=== PATIENT | male | born 1940 | race Caucasian/White ===

== ENCOUNTER 2017-06-12 09:20 | Inpatient (IN) | payer OTHER, MEDICARE, MEDICAID ==
[2017-06-12 10:24] LABS: CHLORIDE,CL 88 mmol/L (101-111); SODIUM,NA 123 mmol/L (135-145)
--- NOTE | 2017-06-12 10:35 | CR ---
Clinical history: 76-year-old male chest pain. Interpretation: Evidence of apparent cardiovascular decompensation i.e. pulmonary venous congestion and blunting the right costophrenic sulcus since PA film of 10 September 2014 (underlying right lower lobe pneumonia with small ipsilateral pleural effusion differential consideration and close clinical correlation requeste d). Old healed fracture deformities posterior lateral right fifth rib. Lingular scarring. No sign of lung mass, other focal lobar infiltrate or atelectasis. No pneumothorax . CONCLUSION: Mild CHF (see above). BNP? EKG?
[2017-06-12] MEDS ORDERED: Furosemide 40 MG/4 ML VIAL IVPUSH ONE (11:05)
--- NOTE | 2017-06-12 11:45 | EDM.PDOC ---
ED HPI GENERAL MEDICAL PROBLEM - General Chief Complaint: Respiratory Problem Stated Complaint[facility] Time Seen by Provider: 06/12/17 09:42 Source of Information: Reports: Patient, RN, RN Notes Reviewed, Other ([facility]) History Limitations: Reports: No Limitations, Other (Poor historian) - History of Present Illness INITIAL COMMENTS - FREE TEXT/NARRATIVE: Pt presents to the ER with c/o increased sob and leg swelling. He states he was to the [place] clinic 2 days ago with the same complaints. Lab was done and he was called yesterday with results and suggestion to go to the ER. Patient states the sob has been going on for about a week or longer. He states he is "bleeding inside his prostate". Patient admits to SOB, denies chest pain, abdominal pain, fever or chills, N/V/D. Onset: Gradual Duration: Getting Worse Severity: Moderate Improves with: Reports: Rest Worsens with: Reports: Movement Context: Reports: Activity - Related Data Allergies Allergy/AdvReac Type Severity Reaction Status Date / Time cornflower Allergy Rash Verified 05/17/16 12:06 Penicillins Allergy Anaphylactic Verified 05/17/16 12:06 Shock strawberry Allergy Rash Verified 05/17/16 12:06 Home Meds: Home Meds Aspirin [Halfprin] 81 mg PO BRK 05/17/16 [History] Hydrocodone/Acetaminophen [Hydrocodon-Acetaminophen 5-325] 1 each PO Q12HR PRN 05/17/16 [History] Terazosin HCl [Terazosin] 10 mg PO BEDTIME 05/17/16 [History] Albuterol [IJD: Albuterol HFA] 2 puff INH ASDIRECTED PRN 06/12/17 [History] Chlorthalidone 2 tab PO DAILY 06/12/17 [History] Past Medical History HEENT History: Reports: Impaired Vision, Other (See Below) Other HEENT History: wears glasses. Cardiovascular History: Reports: CAD, Heart Murmur, High Cholesterol, Hypertension Respiratory History: Reports: COPD Gastrointestinal History: Reports: None Genitourinary History: Reports: Prostate Disorder Musculoskeletal History: Reports: Fracture Neurological History: Reports: None Psychiatric History: Reports: None Endocrine/Metabolic History: Reports: None Hematologic History: Reports: Other (See Below) Other Hematologic History: told he has low blood Immunologic History: Reports: None Oncologic (Cancer) History: Reports: Colon Dermatologic History: Reports: None - Past Surgical History HEENT Surgical History: Reports: Other (See Below) Other HEENT Surgeries/Procedures: tear duct surgery [facility] GI Surgical History: Reports: Other (See Below) Other GI Surgeries/Procedures: Colon surgery for CA Musculoskeletal Surgical History: Reports: Other (See Below) Other Musculoskeletal Surgeries/Procedures:: bilat index tip of finger amputated. Social & Family History - Family History Family Medical History: Noncontributory - Tobacco Use Smoking Status *Q: Former Smoker Years of Tobacco use: 0 Used Tobacco, but Quit: Yes Month Tobacco Last Used: 5 - Caffeine Use Caffeine Use: Reports: Coffee - Recreational Drug Use Recreational Drug Use: No - Living Situation & Occupation Living situation: Reports: Alone Occupation: Retired ED ROS GENERAL - Review of Systems Review Of Systems: ROS reveals no pertinent complaints other than HPI. ED EXAM, GENERAL - Physical Exam Exam: See Below Exam Limited By: No Limitations General Appearance: Alert, WD/WN, Mild Distress Eye Exam: Bilateral Eye: EOMI, Normal Inspection, PERRL Ears: Normal External Exam, Hearing Grossly Normal Nose: Normal Inspection Throat/Mouth: Normal Inspection, Normal Voice, No Airway Compromise Head: Atraumatic, Normocephalic Neck: Normal Inspection, Supple, Non-Tender, Full Range of Motion Respiratory/Chest: Chest Non-Tender, Respiratory Distress (mild distress), Decreased Breath Sounds, Crackles (bases bilaterally) Cardiovascular: Normal Peripheral Pulses, Systolic Murmur, Irregularly Irregular. No: No Edema (bilateral lower leg edema +2-3) Peripheral Pulses: 1+: Radial (L), Radial (R), Dorsalis Pedis (L), Dorsalis Pedis (R) GI/Abdominal: Normal Bowel Sounds, Soft, Non-Tender, Distended (Male) Exam: Deferred Rectal (Males) Exam: Normal Exam, Normal Rectal Tone, Heme - Stool Back Exam: Normal Inspection, Full Range of Motion Extremities: Normal Inspection, Non-Tender, Normal Capillary Refill, Pedal Edema , Limited Range of Motion Neurological: Alert, Oriented, CN II-XII Intact, Normal Cognition, No Motor/ Sensory Deficits Psychiatric: Normal Affect, Normal Mood Skin Exam: Warm, Dry, Intact, Normal Color, No Rash Lymphatic: No Adenopathy EKG INTERPRETATION EKG Date: 06/12/17 Time: 10:05 Rhythm: A-Fib Rate (Beats/Min): 92 Comparison: NA - No Prior EKG EKG Interpretation Comments: Multiple PVC's Course - Vital Signs Last Recorded V/S: Last Vital Signs Temp 98.4 F 06/12/17 09:22 Pulse 99 06/12/17 09:22 Resp 24 H 06/12/17 09:22 BP 149/64 H 06/12/17 09:22 Pulse Ox 95 06/12/17 09:22 - Orders/Labs/Meds Orders: Active Orders 24 hr Category Date Time Status EKG Documentation Completion [RC] STAT Care 06/12/17 09:41 Active Labs: Laboratory Tests 06/12/17 06/12/17 06/12/17 Range/Units 09:53 09:53 10:40 WBC 5.1 (5.0-10.0) 10^3/uL RBC 3.20 L (4.6-6.2) 10^6/uL Hgb 10.1 L (14.0-18.0) g/dL Hct 30.3 L (40.0-54.0) % MCV 94.7 (80-100) fL MCH 31.6 (27.0-34.0) pg MCHC 33.3 (33.0-35.0) g/dL Plt Count 196 (150-450) 10^3/uL Neut % (Auto) 70.9 (42.2-75.2) % Lymph % (Auto) 14.5 L (20.5-50.1) % [place] % (Auto) 11.6 H (2-8) % Eos % (Auto) 2.8 (1.0-3.0) % Baso % (Auto) 0.2 (0.0-1.0) % Sodium 123 L (135-145) mmol/L Potassium 3.7 (3.6-5.0) mmol/L Chloride 88 L (101-111) mmol/L Carbon Dioxide 24.0 (21.0-31.0) mmol/L Anion Gap 14.7 BUN 10 (7-18) mg/dL Creatinine 1.0 (0.6-1.3) mg/dL Est Cr Clr Drug Dosing 68.80 mL/min Estimated GFR (MDRD) > 60 BUN/Creatinine Ratio 10.00 Glucose 95 (74-105) mg/dL Calcium 8.2 L (8.4-10.2) mg/dl Total Bilirubin 0.3 (0.2-1.0) mg/dL AST 27 (10-42) IU/L ALT 16 (10-60) IU/L Alkaline Phosphatase 54 (42-121) IU/L Troponin I 0.02 (0.00-0.02) ng/ml B-Natriuretic Peptide 593 H (0-100) pg/ml Total Protein 6.5 L (6.7-8.2) g/dl Albumin 3.2 (3.2-5.5) g/dl Globulin 3.3 Albumin/Globulin Ratio 0.97 Urine Color Yellow (YELLOW) Urine Appearance Clear (CLEAR) Urine pH 5.5 (5.0-9.0) Ur Specific [place] 1.010 (1.005-1.030) Urine Protein Negative (NEGATIVE) Urine Glucose (UA) Negative (NEGATIVE) Urine Ketones Negative (NEGATIVE) Urine Occult Blood Negative (NEGATIVE) Urine Nitrite Negative (NEGATIVE) Urine Bilirubin Negative (NEGATIVE) Urine Urobilinogen 0.2 (0.2-1.0) mg/dL Ur Leukocyte Esterase Negative (NEGATIVE) Urine RBC 0-5 /HPF Urine WBC 0-5 (0-5/HPF) /HPF Ur Epithelial Cells Rare /HPF Urine Bacteria Rare (0-FEW/HPF) /HPF Meds: Medications Discontinued Medications Generic Name Dose Route Start Last Admin Trade Name Freq PRN Reason Stop Dose Admin Furosemide 80 mg 06/12/17 11:05 06/12/17 11:21 Lasix IVPUSH 06/12/17 11:06 80 mg NOW ONE Administration - Radiology Interpretation Free Text/Narrative:: Portable Chest xray: Mild CHF See rad report Departure - Departure Time of Disposition: 12:07 Disposition: Admitted As Inpatient 64 Condition: Fair Clinical Impression: Hyponatremia, Hypochloremia Congestive heart failure Qualifiers: Congestive heart failure type: unspecified congestive heart failure type Congestive heart failure chronicity: acute Qualified Code(s): I50.9 - Heart failure, unspecified - Discharge Information - My Orders Last 24 Hours: My Active Orders 06/12/17 09:41 EKG Documentation Completion [RC] STAT - Assessment/Plan Last 24 Hours: My Active Orders 06/12/17 09:41 EKG Documentation Completion [RC] STAT
[2017-06-12] MEDS ORDERED: Albuterol 6.7 GM Inhaler INH PRN ×2 (14:36→15:00)
--- NOTE | 2017-06-12 14:38 | PCM.HP ---
H&P History of Present Illness - General Date of Service: 06/12/17 Admit Problem/Dx: Admission Diagnosis/Problem Admission Diagnosis/Problem Shortness of breath History Limitations: Reports: No Limitations - History of Present Illness Initial Comments - Free Text/Narative: Patient is a 76 y/o male with multiple PMH including COPD, CHF who presented to the ED with worsening SOB x 1 week. He reports he is been having SOB for the week and has gotten progressively worse. He notes dry cough, no fever or chills. No flu symptoms. He has 2 pillow orthopnea and this has not change. No PND. He also notes b/l leg swelling. No calf tenderness or recent travel. He said he was seen in the [place] clinic 2 days ago with similar complaints. He denies chest pain, abdominal pain, N/V/D. Improves with: Reports: None Worsens with: Reports: None Associated Symptoms: Reports: Cough - Related Data Allergies/Adverse Reactions: Allergies Allergy/AdvReac Type Severity Reaction Status Date / Time cornflower Allergy Rash Verified 06/12/17 12:07 Penicillins Allergy Anaphylactic Verified 06/12/17 12:07 Shock strawberry Allergy Rash Verified 06/12/17 12:07 Home Medications: Home Meds Aspirin [Halfprin] 81 mg PO BRK 05/17/16 [History] Hydrocodone/Acetaminophen [Hydrocodon-Acetaminophen 5-325] 1 each PO Q12HR PRN 05/17/16 [History] Terazosin HCl [Terazosin] 10 mg PO BEDTIME 05/17/16 [History] Albuterol [IJD: Albuterol HFA] 2 puff INH ASDIRECTED PRN 06/12/17 [History] Chlorthalidone 2 tab PO DAILY 06/12/17 [History] Past Medical History HEENT History: Reports: Impaired Vision, Other (See Below) Other HEENT History: wears glasses. Cardiovascular History: Reports: CAD, Heart Murmur, High Cholesterol, Hypertension Respiratory History: Reports: COPD Gastrointestinal History: Reports: None Genitourinary History: Reports: Prostate Disorder Musculoskeletal History: Reports: Fracture Neurological History: Reports: None Psychiatric History: Reports: None Endocrine/Metabolic History: Reports: None Hematologic History: Reports: Other (See Below) Other Hematologic History: told he has low blood Immunologic History: Reports: None Oncologic (Cancer) History: Reports: Colon Dermatologic History: Reports: None - Infectious Disease History Infectious Disease History: Reports: Chicken Pox, Measles, Rubella - Past Surgical History HEENT Surgical History: Reports: Other (See Below) Other HEENT Surgeries/Procedures: tear duct surgery [facility] GI Surgical History: Reports: Other (See Below) Other GI Surgeries/Procedures: Colon surgery for CA Musculoskeletal Surgical History: Reports: Other (See Below) Other Musculoskeletal Surgeries/Procedures:: bilat index tip of finger amputated. Social & Family History - Family History Family Medical History: Noncontributory - Tobacco Use Smoking Status *Q: Former Smoker Years of Tobacco use: 0 Packs/Tins Daily: 5 Used Tobacco, but Quit: Yes Month Tobacco Last Used: 5 Second Hand Smoke Exposure: No - Caffeine Use Caffeine Use: Reports: Coffee - Alcohol Use Days Per Week of Alcohol Use: 1 Number of Drinks Per Day: 1 Total Drinks Per Week: 1 Date of Last Drink: 06/10/17 - Recreational Drug Use Recreational Drug Use: No - Living Situation & Occupation Living situation: Reports: Alone Occupation: Retired H&P Review of Systems - Review of Systems: Review Of Systems: See Below General: Reports: No Symptoms HEENT: Reports: No Symptoms Pulmonary: Reports: Shortness of Breath, Cough Cardiovascular: Reports: No Symptoms Gastrointestinal: Reports: No Symptoms Genitourinary: Reports: No Symptoms Musculoskeletal: Reports: No Symptoms Skin: Reports: No Symptoms Psychiatric: Reports: No Symptoms Neurological: Reports: No Symptoms Hematologic/Lymphatic: Reports: No Symptoms Immunologic: Reports: No Symptoms Exam - Exam Exam: See Below - Vital Signs Vital Signs: Last Vital Signs Temp 98.4 F 06/12/17 09:22 Pulse 99 06/12/17 09:22 Resp 24 H 06/12/17 09:22 BP 149/64 H 06/12/17 09:22 Pulse Ox 95 06/12/17 09:22 Weight: 276 lb 9.6 oz - Exam Quality Assessment: Supplemental Oxygen General: Alert, Oriented, Cooperative HEENT: PERRLA, Hearing Intact, Mucosa Moist & Capac, Nares Patent, Normal Nasal Septum, Posterior Pharynx Clear, Conjunctiva Clear, EOMI, EACs Clear, TMs Clear Neck: Supple, Trachea Midline, 2 Lungs: Normal Respiratory Effort, Rales, Wheezing Cardiovascular: Regular Rate, Regular Rhythm GI/Abdominal Exam: Normal Bowel Sounds, Soft, Non-Tender, No Organomegaly, No Distention, No Abnormal Bruit, No Mass, Pelvis Stable (Male) Exam: No Hernia, Normal Inspection, Normal Prostate, Circumcised Rectal (Males) Exam: Normal Exam, Normal Rectal Tone, Prostate Normal Back Exam: Normal Inspection, Full Range of Motion, NT Extremities: Pedal Edema Skin: Warm, Dry, Intact Neurological: Cranial Nerves Intact, Reflexes Equal Bilateral Neuro Extensive - Mental Status: Alert, Oriented x3, Normal Mood/Affect, Normal Cognition Neuro Extensive - Motor, Sensory, Reflexes: CN II-XII Intact, Normal Gait, Normal Reflexes Psychiatric: Alert, Normal Affect, Normal Mood - Patient Data Result Diagrams: 06/12/17 09:53 06/12/17 09:53 *Q Meaningful Use (ADM) - VTE *Q VTE Criteria *Q: - Stroke *Q Stroke Criteria *Q: - AMI *Q AMI Criteria *Q: - Problem List (1) Congestive heart failure SNOMED Code(s): 94365489 ICD Code: I50.9 - HEART FAILURE, UNSPECIFIED Status: Acute Priority: High Current Visit: Yes Qualifiers: Congestive heart failure type: unspecified congestive heart failure type Congestive heart failure chronicity: acute Qualified Code(s): I50.9 - Heart failure, unspecified (2) Hypochloremia SNOMED Code(s): 18415831 ICD Code: E87.8 - OTH DISORDERS OF ELECTROLYTE AND FLUID BALANCE, NEC Status: Acute Current Visit: Yes (3) Hyponatremia SNOMED Code(s): 30763410 ICD Code: E87.1 - HYPO-OSMOLALITY AND HYPONATREMIA Status: Acute Current Visit: Yes Problem List Initiated/Reviewed/Updated: Yes Orders Last 24hrs: Active Orders 24 hr Category Date Time Status Patient Status [ADT] Routine ADT 06/12/17 14:31 Ordered Blood Glucose Check, Bedside [] TIDMEALS Care 06/12/17 14:31 Ordered Cardiac Monitoring [] CONTINUOUS Care 06/12/17 14:33 Ordered Height and Weight [] DAILY Care 06/12/17 14:31 Ordered Intake and Output [RC] QSHIFT Care 06/12/17 14:34 Ordered Oxygen Therapy [RC] PRN Care 06/12/17 14:31 Ordered Pulse Oximetry [] CONTINUOUS Care 06/12/17 14:33 Ordered RT Aerosol Therapy [RC] ASDIRECTED Care 06/12/17 14:36 Ordered VTE/DVT Education [RC] PER UNIT ROUTINE Care 06/12/17 14:31 Ordered Vital Signs [RC] Q4H Care 06/12/17 14:31 Ordered Cardiac [Heart Healthy Diet] [DIET] Diet 06/12/17 Dinner Active MAGNESIUM [CHEM] Stat Lab 06/12/17 14:31 Ordered PHOSPHORUS [CHEM] Stat Lab 06/12/17 14:31 Ordered Acetaminophen/HYDROcodone [[place] 325-5 MG] Med 06/12/17 14:36 Ordered 1 each PO Q12HR PRN Albuterol [Proventil HFA] Med 06/12/17 14:36 Ordered 2 puff INH ASDIRECTED PRN Albuterol/Ipratropium [DuoNeb 3.0-0.5 MG/3 ML] Med 06/12/17 14:31 Ordered 3 ml NEB Q4H PRN Aspirin [Halfprin] Med 06/13/17 08:00 Ordered 81 mg PO BRK Chlorthalidone Med 06/13/17 09:00 Ordered 2 tab PO DAILY Heparin Sodium Med 06/12/17 14:45 Ordered 5,000 units SUBCUT Q12H Terazosin HCl [Terazosin] Med 06/12/17 21:00 Ordered 10 mg PO BEDTIME Resuscitation Status Routine Resus Stat 06/12/17 14:31 Ordered Medication Orders Hydrocodone Bitart/Acetaminophen ([place] 325-5 Mg) tab PO Q12HR PRN PRN Reason: Pain Albuterol (Proventil Hfa) gm INH ASDIRECTED PRN PRN Reason: breathing Albuterol/Ipratropium (Duoneb 3.0-0.5 Mg/3 Ml) 3 ml NEB Q4H PRN PRN Reason: shortness of breath/wheezing Aspirin (Halfprin) 81 mg PO BRK [place] Chlorthalidone (Chlorthalidone) mg PO DAILY [place] Heparin Sodium (Porcine) (Heparin Sodium) 5,000 units SUBCUT Q12H [place] Non-Formulary Medication (Terazosin Hcl [Terazosin]) 10 mg PO BEDTIME [facility] Assessment/Plan Comment:: # Acute hypoxic respiratory failure -This likely due to mild CHF decompensation vs COPD exacerbation vs Pneumonia -will admit patient at this time -Duo-Nebs q4h prn -IV solumedrol 40 mg q8h -Oxygen prn -pulse ox -Levaquin IV -IV lasix 40 mg bid -Daily weight -Fluid restriction -Echo if available -Lisinopril -Carvedilol
[2017-06-12] MEDS: Albuterol/Ipratropium 3.0-0.5 MG/3 ML Neb Soln NEB PRN (15:25)
[2017-06-12] MEDS: Levofloxacin/Dextrose 5%-Water 750 MG in Premix Bag 1 BAG IV SCH (16:31)
[2017-06-12] MEDS: Acetaminophen/HYDROcodone 325-5 MG Tab PO PRN (16:37)
[2017-06-12] MEDS: Terazosin 5 MG Cap PO SCH (20:14)
[2017-06-12] MEDS: Heparin Sodium 5,000 Units/ML Vial SUBCUT SCH (20:17)
[2017-06-12] MEDS: Furosemide 40 MG/4 ML VIAL IVPUSH SCH (20:18)
[2017-06-12] MEDS ORDERED: Sodium Chloride 0.9% 10 ML Syringe FLUSH PRN (20:30)
[2017-06-12] MEDS ORDERED: Furosemide 40 MG/4 ML VIAL IVPUSH SCH (21:00)
[2017-06-13] MEDS: Acetaminophen/HYDROcodone 325-5 MG Tab PO PRN ×2 (06:13→18:04)
[2017-06-13] MEDS: Lisinopril 10 MG Tab PO SCH (08:48)
[2017-06-13] MEDS: Chlorthalidone 25 MG Tab PO SCH (08:48)
[2017-06-13] MEDS: Heparin Sodium 5,000 Units/ML Vial SUBCUT SCH ×3 (08:48→20:30)
[2017-06-13] MEDS: Aspirin 81 MG Tab.EC PO SCH (08:48)
[2017-06-13] MEDS: Furosemide 40 MG/4 ML VIAL IVPUSH SCH ×2 (08:48→13:34)
--- NOTE | 2017-06-13 10:13 | PCM.PN ---
- General Info Date of Service: 06/13/17 Admission Dx/Problem (Free Text): Admission Diagnosis/Problem Admission Diagnosis/Problem Shortness of breath Subjective Update: Feeling better. Less shortness of breath. No associated chest pain. No fever. Had good urine output overnight - Patient Data Vitals - Most Recent: Last Vital Signs Temp 37.0 C 06/13/17 07:00 Pulse 87 06/13/17 07:00 Resp 20 06/13/17 07:00 BP 139/72 06/13/17 08:48 Pulse Ox 93 L 06/13/17 07:00 Weight - Most Recent: 122.107 kg I&O - Last 24 Hours: Intake & Output 06/12/17 06/13/17 06/13/17 22:59 06:59 14:59 Intake Total 445 250 Output Total 2350 2225 Balance -1904 Lab Results Last 24 Hours: Laboratory Results - last 24 hr 06/12/17 06/12/17 06/13/17 Range/Units 17:04 18:16 08:00 Sodium 125 L (135-145) mmol/L Potassium 3.9 (3.6-5.0) mmol/L Chloride 86 L (101-111) mmol/L Carbon Dioxide 33.0 H (21.0-31.0) mmol/L Anion Gap 9.9 BUN 15 (7-18) mg/dL Creatinine 1.2 (0.6-1.3) mg/dL Est Cr Clr Drug Dosing 57.34 mL/min Estimated GFR (MDRD) 59 Glucose 92 (74-105) mg/dL POC Glucose 106 110 (83-110) mg/dl Calcium 8.4 (8.4-10.2) mg/dl Med Orders - Current: Current Medications Hydrocodone Bitart/Acetaminophen ([place] 325-5 Mg) 1 tab PO Q12HR PRN PRN Reason: Pain Last Admin: 06/13/17 06:13 Dose: 0.5 tab Albuterol/Ipratropium (Duoneb 3.0-0.5 Mg/3 Ml) 3 ml NEB Q4H PRN PRN Reason: shortness of breath/wheezing Last Admin: 06/12/17 15:25 Dose: 3 ml Albuterol/Ipratropium (Duoneb 3.0-0.5 Mg/3 Ml) 3 ml NEB BIDRT [place] Aspirin (Halfprin) 81 mg PO BRK [facility] [place] Last Admin: 06/13/17 08:48 Dose: 81 mg Budesonide (Pulmicort) 0.5 mg NEB BIDRT [facility] [place] Carvedilol (Coreg) 6.25 mg PO BIDMEALS [facility] [place] Chlorthalidone (Chlorthalidone) 50 mg PO DAILY [facility] Last Admin: 06/13/17 08:48 Dose: 50 mg Furosemide (Lasix) 40 mg IVPUSH BID@0900,1400 [facility] [place] Last Admin: 06/13/17 08:48 Dose: 40 mg Heparin Sodium (Porcine) (Heparin Sodium) 5,000 units SUBCUT Q12H [facility] [place] Last Admin: 06/13/17 08:51 Dose: Not Given Levofloxacin/Dextrose 750 mg/ (Premix) 150 mls @ 100 mls/hr IV Q24H [facility] [place] Last Admin: 06/12/17 16:31 Dose: 100 mls/hr Lisinopril (Prinivil) 10 mg PO DAILY [facility] [place] Last Admin: 06/13/17 08:48 Dose: 10 mg Potassium Chloride (Klor-Con 10) 20 meq PO WITHBREAKFAST [facility] [place] Sodium Chloride (Saline Flush) 10 ml FLUSH ASDIRECTED PRN PRN Reason: IV Use Terazosin HCl (Hytrin) 10 mg PO BEDTIME [facility] Last Admin: 06/12/17 20:14 Dose: 10 mg Discontinued Medications Albuterol (Proventil Hfa) 0 gm INH ASDIRECTED PRN PRN Reason: breathing Albuterol (Proventil Hfa) 0 gm INH Q4H PRN PRN Reason: breathing Furosemide (Lasix) 80 mg IVPUSH NOW ONE Stop: 06/12/17 11:06 Last Admin: 06/12/17 11:21 Dose: 80 mg Furosemide (Lasix) 40 mg IVPUSH BID [facility] [place] - Exam General: Alert, Oriented Neck: Supple Lungs: Normal Respiratory Effort, Decreased Breath Sounds Cardiovascular: Regular Rate, Regular Rhythm GI/Abdominal Exam: Normal Bowel Sounds, Soft, Non-Tender Extremities: Pedal Edema (2+) Skin: Warm, Dry - Problem List & Annotations (1) Acute exacerbation of chronic obstructive pulmonary disease (COPD) SNOMED Code(s): 084259116 Code(s): J44.1 - CHRONIC OBSTRUCTIVE PULMONARY DISEASE W (ACUTE) EXACERBATION Status: Acute Current Visit: Yes (2) Congestive heart failure SNOMED Code(s): 40735501 Code(s): I50.9 - HEART FAILURE, UNSPECIFIED Status: Acute Priority: High Current Visit: Yes Qualifiers: Congestive heart failure type: unspecified congestive heart failure type Congestive heart failure chronicity: acute Qualified Code(s): I50.9 - Heart failure, unspecified (3) Hyponatremia SNOMED Code(s): 70460689 Code(s): E87.1 - HYPO-OSMOLALITY AND HYPONATREMIA Status: Acute Current Visit: Yes - Problem List Review Problem List Initiated/Reviewed/Updated: Yes - My Orders Last 24 Hours: My Active Orders 06/12/17 20:30 Sodium Chloride 0.9% [Saline Flush] 10 ml FLUSH ASDIRECTED PRN 06/13/17 08:00 Potassium Chloride [Klor-Con 10] 20 meq PO WITHBREAKFAST 06/13/17 10:01 RT Aerosol Therapy [RC] ASDIRECTED 06/13/17 10:02 RT Aerosol Therapy [RC] ASDIRECTED 06/13/17 18:00 Albuterol/Ipratropium [DuoNeb 3.0-0.5 MG/3 ML] 3 ml NEB BIDRT Budesonide [Pulmicort] 0.5 mg NEB BIDRT - Plan Plan:: Acute exacerbation of COPD Treat with Pulmicort Use DuoNeb scheduled and when necessary Acute community-acquired pneumonia Blood culture is pending Sputum culture is pending Treat with levofloxacin Acute congestive heart failure Likely due to diastolic dysfunction Treat with IV Lasix Start potassium supplement Continue Coreg, lisinopril Monitor electrolytes Hyponatremia Monitor with Diuretics DVT prophylaxis with subcutaneous heparin
[2017-06-13] MEDS: Potassium Chloride 10 MEQ Tab.ER PO SCH (10:41)
[2017-06-13] MEDS: Budesonide 0.5 MG/2 ML Neb Susp NEB SCH ×3 (11:43→17:12)
[2017-06-13] MEDS: Albuterol/Ipratropium 3.0-0.5 MG/3 ML Neb Soln NEB SCH ×3 (11:43→17:12)
--- NOTE | 2017-06-13 15:01 | EKG ---
06/12/2017 - KISHORE LEPE - FINDINGS: This 12-lead EKG shows atrial fibrillation with an average ventricular rate of 92 (70 to 106) with multiple PVCs seen. No acute ST-segment or T-wave changes. [facility] /[id number]
[2017-06-13] MEDS: Levofloxacin/Dextrose 5%-Water 750 MG in Premix Bag 1 BAG IV SCH (17:12)
[2017-06-13] MEDS: Carvedilol 6.25 MG Tab PO SCH (18:04)
[2017-06-13] MEDS: Terazosin 5 MG Cap PO SCH (20:29)
[2017-06-14] MEDS: Acetaminophen/HYDROcodone 325-5 MG Tab PO PRN ×2 (06:45→20:35)
[2017-06-14] MEDS: Albuterol/Ipratropium 3.0-0.5 MG/3 ML Neb Soln NEB SCH ×2 (07:19→17:01)
[2017-06-14] MEDS: Budesonide 0.5 MG/2 ML Neb Susp NEB SCH ×2 (07:19→17:01)
[2017-06-14] MEDS: Potassium Chloride 10 MEQ Tab.ER PO SCH (10:08)
[2017-06-14] MEDS: Aspirin 81 MG Tab.EC PO SCH (10:08)
[2017-06-14] MEDS: Chlorthalidone 25 MG Tab PO SCH (10:08)
[2017-06-14] MEDS: Carvedilol 6.25 MG Tab PO SCH ×2 (10:09→18:26)
[2017-06-14] MEDS: Furosemide 40 MG/4 ML VIAL IVPUSH SCH ×2 (10:09→14:35)
[2017-06-14] MEDS: Lisinopril 10 MG Tab PO SCH (10:09)
[2017-06-14] MEDS: Heparin Sodium 5,000 Units/ML Vial SUBCUT SCH ×2 (10:09→20:34)
[2017-06-14] MEDS: Albuterol/Ipratropium 3.0-0.5 MG/3 ML Neb Soln NEB PRN (10:20)
[2017-06-14] MEDS ORDERED: Lisinopril 10 MG Tab PO SCH (12:51)
--- NOTE | 2017-06-14 13:23 | PCM.PN ---
- General Info Date of Service: 06/14/17 Admission Dx/Problem (Free Text): Admission Diagnosis/Problem Admission Diagnosis/Problem Shortness of breath Subjective Update: Feeling better. Less shortness of breath but the shortness of breath was worse overnight. No associated chest pain. No fever. Had good urine output overnight Still has significant edema. He did not tolerate compression stockings well. No cough, fever - Review of Systems General: Denies: Fever Pulmonary: Reports: Shortness of Breath, Cough (Nonproductive) Cardiovascular: Reports: Edema. Denies: Chest Pain Gastrointestinal: Denies: Abdominal Pain Genitourinary: Denies: Dysuria Neurological: Denies: Confusion - Patient Data Vitals - Most Recent: Last Vital Signs Temp 36.3 C 06/14/17 10:53 Pulse 83 06/14/17 10:53 Resp 20 06/14/17 10:53 BP 97/55 L 06/14/17 10:53 Pulse Ox 93 L 06/14/17 10:53 Weight - Most Recent: 119.476 kg I&O - Last 24 Hours: Intake & Output 06/13/17 06/14/17 06/14/17 22:59 06:59 14:59 Intake Total 500 175 300 Output Total 1000 550 Balance -500 -375 300 Lab Results Last 24 Hours: Laboratory Results - last 24 hr 06/13/17 06/14/17 06/14/17 Range/Units 17:22 08:40 11:17 POC Glucose 110 120 H 90 (83-110) mg/dl Med Orders - Current: Current Medications Hydrocodone Bitart/Acetaminophen ([place] 325-5 Mg) 1 tab PO Q12HR PRN PRN Reason: Pain Last Admin: 06/14/17 06:45 Dose: 0.5 tab Albuterol/Ipratropium (Duoneb 3.0-0.5 Mg/3 Ml) 3 ml NEB Q4H PRN PRN Reason: shortness of breath/wheezing Last Admin: 06/14/17 10:20 Dose: 3 ml Albuterol/Ipratropium (Duoneb 3.0-0.5 Mg/3 Ml) 3 ml NEB BIDRT [facility] Last Admin: 06/14/17 07:19 Dose: 3 ml Aspirin (Halfprin) 81 mg PO BRK [facility] Last Admin: 06/14/17 10:08 Dose: 81 mg Budesonide (Pulmicort) 0.5 mg NEB BIDRT [facility] Last Admin: 06/14/17 07:19 Dose: 0.5 mg Carvedilol (Coreg) 6.25 mg PO BIDMEALS [facility] Last Admin: 06/14/17 10:09 Dose: 6.25 mg Chlorthalidone (Chlorthalidone) 50 mg PO DAILY [facility] Last Admin: 06/14/17 10:08 Dose: 50 mg Furosemide (Lasix) 40 mg IVPUSH BID@0900,1400 [facility] Last Admin: 06/14/17 10:09 Dose: 40 mg Heparin Sodium (Porcine) (Heparin Sodium) 5,000 units SUBCUT Q12H [facility] Last Admin: 06/14/17 10:09 Dose: Not Given Levofloxacin/Dextrose 750 mg/ (Premix) 150 mls @ 100 mls/hr IV Q24H [facility] Last Infusion: 06/13/17 20:21 Dose: Infused Lisinopril (Prinivil) 5 mg PO DAILY [facility] Potassium Chloride (Klor-Con 10) 20 meq PO WITHBREAKFAST [facility] Last Admin: 06/14/17 10:08 Dose: 20 meq Sodium Chloride (Saline Flush) 10 ml FLUSH ASDIRECTED PRN PRN Reason: IV Use Terazosin HCl (Hytrin) 10 mg PO BEDTIME [facility] Last Admin: 06/13/17 20:29 Dose: 10 mg Discontinued Medications Albuterol (Proventil Hfa) 0 gm INH ASDIRECTED PRN PRN Reason: breathing Albuterol (Proventil Hfa) 0 gm INH Q4H PRN PRN Reason: breathing Furosemide (Lasix) 80 mg IVPUSH NOW ONE Stop: 06/12/17 11:06 Last Admin: 06/12/17 11:21 Dose: 80 mg Furosemide (Lasix) 40 mg IVPUSH BID [facility] Lisinopril (Prinivil) 10 mg PO DAILY [facility] Last Admin: 06/14/17 10:09 Dose: 10 mg - Exam Quality Assessment: Supplemental Oxygen General: Alert, Oriented Neck: Supple Lungs: Clear to Auscultation, Decreased Breath Sounds. No: Rales, Rhonchi, Stridor, Wheezing Cardiovascular: Regular Rate, Regular Rhythm GI/Abdominal Exam: Normal Bowel Sounds, Soft, Non-Tender Extremities: Pedal Edema Skin: Warm, Dry Neurological: No New Focal Deficit Psy/Mental Status: Alert, Normal Affect, Normal Mood - Problem List & Annotations (1) Acute exacerbation of chronic obstructive pulmonary disease (COPD) SNOMED Code(s): 625733842 Code(s): J44.1 - CHRONIC OBSTRUCTIVE PULMONARY DISEASE W (ACUTE) EXACERBATION Status: Acute Current Visit: Yes (2) Congestive heart failure SNOMED Code(s): 94524022 Code(s): I50.9 - HEART FAILURE, UNSPECIFIED Status: Acute Priority: High Current Visit: Yes Qualifiers: Congestive heart failure type: unspecified congestive heart failure type Congestive heart failure chronicity: acute Qualified Code(s): I50.9 - Heart failure, unspecified (3) Hyponatremia SNOMED Code(s): 61104487 Code(s): E87.1 - HYPO-OSMOLALITY AND HYPONATREMIA Status: Acute Current Visit: Yes - Problem List Review Problem List Initiated/Reviewed/Updated: Yes - My Orders Last 24 Hours: My Active Orders 06/14/17 12:17 BASIC METABOLIC PANEL,BMP [CHEM] Routine 06/14/17 12:49 [employer] Discontinue [Cardiac Monitoring Discontinue] [RC] Click to Edit 06/14/17 12:51 Lisinopril [Prinivil] 5 mg PO DAILY 06/15/17 05:15 BASIC METABOLIC PANEL,BMP [CHEM] AM CBC WITH AUTO DIFF [HEME] AM - Plan Plan:: Acute exacerbation of COPD Treat with Pulmicort Use DuoNeb scheduled and when necessary For now hold off on systemic steroids Acute community-acquired pneumonia Blood culture is pending Sputum culture is pending Treat with levofloxacin Acute congestive heart failure last echo 03/2016 Interpretation Summary The left ventricle is normal in size. There is moderate concentric left ventricular hypertrophy. Ejection Fraction = 55-60%. The left atrium is moderately dilated. There is mild mitral annular calcification. The tricuspid valve is not well visualized, but is grossly normal. The aortic valve is moderately calcified. Moderate to severe valvular aortic stenosis. There is no pericardial effusion. Likely due to diastolic dysfunction continue to Treat with IV Lasix Start potassium supplement Continue Coreg, decrease lisinopril re: lower BPs Monitor electrolytes Hyponatremia Monitor with Diuretics DM BSs are controlled stop frequent measures acute hypoxemic respiratory failure With taper off oxygen as possible DVT prophylaxis with subcutaneous heparin
[2017-06-14] MEDS: Levofloxacin/Dextrose 5%-Water 750 MG in Premix Bag 1 BAG IV SCH (16:13)
[2017-06-14] MEDS: Terazosin 5 MG Cap PO SCH (20:33)
[2017-06-15] MEDS: Albuterol/Ipratropium 3.0-0.5 MG/3 ML Neb Soln NEB SCH ×2 (07:09→18:49)
[2017-06-15] MEDS: Budesonide 0.5 MG/2 ML Neb Susp NEB SCH ×2 (07:09→18:49)
[2017-06-15] MEDS: Furosemide 40 MG Tab PO SCH (08:50)
[2017-06-15] MEDS: Potassium Chloride 10 MEQ Tab.ER PO SCH (08:50)
[2017-06-15] MEDS: Aspirin 81 MG Tab.EC PO SCH (08:50)
[2017-06-15] MEDS: Carvedilol 6.25 MG Tab PO SCH ×2 (08:53→17:41)
[2017-06-15] MEDS: Heparin Sodium 5,000 Units/ML Vial SUBCUT SCH ×2 (08:54→20:42)
[2017-06-15] MEDS ORDERED: Furosemide 40 MG/4 ML VIAL IVPUSH SCH (09:00)
--- NOTE | 2017-06-15 10:34 | PCM.PN ---
- General Info Date of Service: 06/15/17 Admission Dx/Problem (Free Text): Admission Diagnosis/Problem Admission Diagnosis/Problem Shortness of breath Subjective Update: still moderate shortness of breath. No associated chest pain. No fever. No cough, fever developed erythema on the abdomen and lower back area, no such change on upper torso, extremities, associated with itching Functional Status: Reports: Pain Controlled, Tolerating Diet - Review of Systems General: Denies: Fever Pulmonary: Reports: Shortness of Breath, Cough. Denies: Pleuritic Chest Pain, Hemoptysis, Wheezing Cardiovascular: Denies: Chest Pain Gastrointestinal: Denies: Abdominal Pain Skin: Reports: Rash Neurological: Denies: Confusion - Patient Data Vitals - Most Recent: Last Vital Signs Temp 37.1 C 06/15/17 08:00 Pulse 80 06/15/17 08:53 Resp 20 06/15/17 08:00 BP 85/45 L 06/15/17 08:53 Pulse Ox 87 L 06/15/17 08:00 Weight - Most Recent: 115.938 kg I&O - Last 24 Hours: Intake & Output 06/14/17 06/15/17 06/15/17 22:59 06:59 14:59 Intake Total 263 Output Total 1500 1200 300 Balance -1237 -1200 -300 Lab Results Last 24 Hours: Laboratory Results - last 24 hr 06/14/17 06/14/17 06/15/17 Range/Units 11:17 13:39 06:00 WBC 4.8 L (5.0-10.0) 10^3/uL RBC 3.36 L (4.6-6.2) 10^6/uL Hgb 10.7 L (14.0-18.0) g/dL Hct 32.8 L (40.0-54.0) % MCV 97.6 (80-100) fL MCH 31.8 (27.0-34.0) pg MCHC 32.6 L (33.0-35.0) g/dL Plt Count 213 (150-450) 10^3/uL Neut % (Auto) 59.0 (42.2-75.2) % Lymph % (Auto) 20.0 L (20.5-50.1) % [place] % (Auto) 17.5 H (2-8) % Eos % (Auto) 3.3 H (1.0-3.0) % Baso % (Auto) 0.2 (0.0-1.0) % Sodium 130 L (135-145) mmol/L Potassium 3.7 (3.6-5.0) mmol/L Chloride 86 L (101-111) mmol/L Carbon Dioxide 35.0 H (21.0-31.0) mmol/L Anion Gap 12.7 BUN 23 H (7-18) mg/dL Creatinine 1.9 H (0.6-1.3) mg/dL Est Cr Clr Drug Dosing 36.21 mL/min Estimated GFR (MDRD) 34 Glucose 123 H (74-105) mg/dL POC Glucose 90 (83-110) mg/dl Calcium 8.5 (8.4-10.2) mg/dl 06/15/17 Range/Units 06:00 WBC (5.0-10.0) 10^3/uL RBC (4.6-6.2) 10^6/uL Hgb (14.0-18.0) g/dL Hct (40.0-54.0) % MCV (80-100) fL MCH (27.0-34.0) pg MCHC (33.0-35.0) g/dL Plt Count (150-450) 10^3/uL Neut % (Auto) (42.2-75.2) % Lymph % (Auto) (20.5-50.1) % [place] % (Auto) (2-8) % Eos % (Auto) (1.0-3.0) % Baso % (Auto) (0.0-1.0) % Sodium 131 L (135-145) mmol/L Potassium 3.1 L (3.6-5.0) mmol/L Chloride 88 L (101-111) mmol/L Carbon Dioxide 34.0 H (21.0-31.0) mmol/L Anion Gap 12.1 BUN 26 H (7-18) mg/dL Creatinine 2.0 H (0.6-1.3) mg/dL Est Cr Clr Drug Dosing 34.40 mL/min Estimated GFR (MDRD) 32 Glucose 101 (74-105) mg/dL POC Glucose (83-110) mg/dl Calcium 8.6 (8.4-10.2) mg/dl Med Orders - Current: Current Medications Albuterol/Ipratropium (Duoneb 3.0-0.5 Mg/3 Ml) 3 ml NEB Q4H PRN PRN Reason: shortness of breath/wheezing Last Admin: 06/14/17 10:20 Dose: 3 ml Albuterol/Ipratropium (Duoneb 3.0-0.5 Mg/3 Ml) 3 ml NEB BIDRT [facility] Last Admin: 06/15/17 07:09 Dose: 3 ml Aspirin (Halfprin) 81 mg PO BRK [facility] Last Admin: 06/15/17 08:50 Dose: 81 mg Budesonide (Pulmicort) 0.5 mg NEB BIDRT [facility] Last Admin: 06/15/17 07:09 Dose: 0.5 mg Carvedilol (Coreg) 6.25 mg PO BIDMEALS [facility] Last Admin: 06/15/17 08:53 Dose: Not Given Furosemide (Lasix) 40 mg PO DAILY [facility] Last Admin: 06/15/17 08:50 Dose: 40 mg Heparin Sodium (Porcine) (Heparin Sodium) 5,000 units SUBCUT Q12H [facility] Last Admin: 06/15/17 08:54 Dose: Not Given Levofloxacin/Dextrose 750 mg/ (Premix) 150 mls @ 100 mls/hr IV Q48H [facility] Potassium Chloride (Klor-Con 10) 20 meq PO WITHBREAKFAST [facility] Last Admin: 06/15/17 08:50 Dose: 20 meq Potassium Chloride (Klor-Con 10) 40 meq PO ONETIME ONE Stop: 06/15/17 16:01 Sodium Chloride (Saline Flush) 10 ml FLUSH ASDIRECTED PRN PRN Reason: IV Use Terazosin HCl (Hytrin) 10 mg PO BEDTIME [facility] Last Admin: 06/14/17 20:33 Dose: 10 mg Discontinued Medications Hydrocodone Bitart/Acetaminophen ([place] 325-5 Mg) 1 tab PO Q12HR PRN PRN Reason: Pain Last Admin: 06/14/17 20:35 Dose: 1 tab Albuterol (Proventil Hfa) 0 gm INH ASDIRECTED PRN PRN Reason: breathing Albuterol (Proventil Hfa) 0 gm INH Q4H PRN PRN Reason: breathing Chlorthalidone (Chlorthalidone) 50 mg PO DAILY [facility] Last Admin: 06/14/17 10:08 Dose: 50 mg Furosemide (Lasix) 80 mg IVPUSH NOW ONE Stop: 06/12/17 11:06 Last Admin: 06/12/17 11:21 Dose: 80 mg Furosemide (Lasix) 40 mg IVPUSH BID [facility] Furosemide (Lasix) 40 mg IVPUSH BID@0900,1400 [facility] Last Admin: 06/14/17 14:35 Dose: 40 mg Furosemide (Lasix) 40 mg IVPUSH DAILY [facility] Levofloxacin/Dextrose 750 mg/ (Premix) 150 mls @ 100 mls/hr IV Q24H [facility] Last Infusion: 06/14/17 18:08 Dose: Infused Lisinopril (Prinivil) 10 mg PO DAILY [facility] Last Admin: 06/14/17 10:09 Dose: 10 mg Lisinopril (Prinivil) 5 mg PO DAILY [facility] - Exam General: Alert, Oriented Neck: Supple Lungs: Clear to Auscultation, Normal Respiratory Effort. No: Wheezing Cardiovascular: Regular Rate, Regular Rhythm GI/Abdominal Exam: Normal Bowel Sounds, Soft, Non-Tender Extremities: Pedal Edema (2+ b/l pitting) Skin: Rash (Erythema also a lower abdominal wall and lower back,) - Problem List & Annotations (1) Acute exacerbation of chronic obstructive pulmonary disease (COPD) SNOMED Code(s): 308724251 Code(s): J44.1 - CHRONIC OBSTRUCTIVE PULMONARY DISEASE W (ACUTE) EXACERBATION Status: Acute Current Visit: Yes (2) Congestive heart failure SNOMED Code(s): 00233376 Code(s): I50.9 - HEART FAILURE, UNSPECIFIED Status: Acute Priority: High Current Visit: Yes Qualifiers: Congestive heart failure type: unspecified congestive heart failure type Congestive heart failure chronicity: acute Qualified Code(s): I50.9 - Heart failure, unspecified (3) Hyponatremia SNOMED Code(s): 75755160 Code(s): E87.1 - HYPO-OSMOLALITY AND HYPONATREMIA Status: Acute Current Visit: Yes - Problem List Review Problem List Initiated/Reviewed/Updated: Yes - My Orders Last 24 Hours: My Active Orders 06/15/17 09:00 Furosemide [Lasix] 40 mg PO DAILY 06/15/17 16:00 Potassium Chloride [Klor-Con 10] 40 meq PO ONETIME ONE 06/16/17 05:15 BASIC METABOLIC PANEL,BMP [CHEM] AM CBC WITH AUTO DIFF [HEME] AM 06/16/17 16:00 Levofloxacin/Dextrose 5%-Water [Levaquin in D5W 750 MG/150 ML] 750 mg Premix Bag 1 bag IV Q48H - Plan Plan:: Acute exacerbation of COPD Treat with Pulmicort Use DuoNeb scheduled and when necessary For now hold off on systemic steroids Acute community-acquired pneumonia Remains afebrile Blood culture is pending Sputum culture is pending Treat with levofloxacin Acute congestive heart failure last echo 03/2016 Interpretation Summary The left ventricle is normal in size. There is moderate concentric left ventricular hypertrophy. Ejection Fraction = 55-60%. The left atrium is moderately dilated. There is mild mitral annular calcification. The tricuspid valve is not well visualized, but is grossly normal. The aortic valve is moderately calcified. Moderate to severe valvular aortic stenosis. There is no pericardial effusion. Likely due to diastolic dysfunction continue to Treat with Lasix Due to acute renal failure will decrease dose Continue potassium supplement for hypokalemia Continue Coreg, Stop lisinopril and chlorthalidone re: lower BPs Monitor electrolytes Hyponatremia Monitor with Diuretics DM BSs are controlled Acute renal failure Likely due to diuretics and hypotension Stop blood pressure medications, decrease diuretics Recheck in the morning acute hypoxemic respiratory failure With taper off oxygen as possible Rash This appeared to be a local contact dermatitis We will monitor DVT prophylaxis with subcutaneous heparin
[2017-06-15] MEDS ORDERED: Potassium Chloride 10 MEQ Tab.ER PO ONE (16:00)
[2017-06-15] MEDS: Terazosin 5 MG Cap PO SCH (20:40)
[2017-06-15] MEDS: Acetaminophen/HYDROcodone 325-5 MG Tab PO PRN (20:55)
[2017-06-16] MEDS: Budesonide 0.5 MG/2 ML Neb Susp NEB SCH ×2 (07:24→17:56)
[2017-06-16] MEDS: Albuterol/Ipratropium 3.0-0.5 MG/3 ML Neb Soln NEB SCH ×2 (07:24→17:56)
[2017-06-16] MEDS: Potassium Chloride 10 MEQ Tab.ER PO SCH ×4 (08:21→19:57)
[2017-06-16] MEDS: Carvedilol 6.25 MG Tab PO SCH ×2 (08:21→17:12)
[2017-06-16] MEDS: Aspirin 81 MG Tab.EC PO SCH (08:21)
[2017-06-16] MEDS: Heparin Sodium 5,000 Units/ML Vial SUBCUT SCH ×2 (09:07→21:50)
[2017-06-16] MEDS: Furosemide 40 MG Tab PO SCH ×2 (09:07→11:06)
--- NOTE | 2017-06-16 11:39 | PCM.PN ---
- General Info Date of Service: 06/16/17 Admission Dx/Problem (Free Text): Admission Diagnosis/Problem Admission Diagnosis/Problem Shortness of breath Subjective Update: Denies shortness of breath. No associated chest pain. No fever. Continues to have mild erythema on the abdomen, it resolved at the lower back area Has been refusing medications including diuretics, potassium, Coreg - Review of Systems General: Denies: Fever Pulmonary: Denies: Shortness of Breath (Able to lay flat) Cardiovascular: Denies: Chest Pain, Palpitations Gastrointestinal: Denies: Abdominal Pain Genitourinary: Reports: Other (Has light-colored urine). Denies: Dysuria Neurological: Denies: Confusion - Patient Data Vitals - Most Recent: Last Vital Signs Temp 37.5 C 06/16/17 07:00 Pulse 96 06/16/17 07:00 Resp 24 H 06/16/17 07:00 BP 119/56 L 06/16/17 07:00 Pulse Ox 92 L 06/16/17 07:00 Weight - Most Recent: 115.938 kg I&O - Last 24 Hours: Intake & Output 06/15/17 06/16/17 06/16/17 22:59 06:59 14:59 Intake Total 370 500 570 Output Total 1300 1150 200 Balance -930 -650 370 Lab Results Last 24 Hours: Laboratory Results - last 24 hr 06/16/17 06/16/17 Range/Units 05:55 05:55 WBC 11.1 H (5.0-10.0) 10^3/uL RBC 3.38 L (4.6-6.2) 10^6/uL Hgb 10.7 L (14.0-18.0) g/dL Hct 32.7 L (40.0-54.0) % MCV 96.7 (80-100) fL MCH 31.7 (27.0-34.0) pg MCHC 32.7 L (33.0-35.0) g/dL Plt Count 202 (150-450) 10^3/uL Neut % (Auto) 79.9 H (42.2-75.2) % Lymph % (Auto) 8.3 L (20.5-50.1) % [place] % (Auto) 11.6 H (2-8) % Eos % (Auto) 0.2 L (1.0-3.0) % Baso % (Auto) 0.0 (0.0-1.0) % Sodium 127 L (135-145) mmol/L Potassium 2.9 L (3.6-5.0) mmol/L Chloride 86 L (101-111) mmol/L Carbon Dioxide 30.0 (21.0-31.0) mmol/L Anion Gap 13.9 BUN 23 H (7-18) mg/dL Creatinine 1.9 H (0.6-1.3) mg/dL Est Cr Clr Drug Dosing 36.21 mL/min Estimated GFR (MDRD) 34 Glucose 132 H (74-105) mg/dL Calcium 8.4 (8.4-10.2) mg/dl Med Orders - Current: Current Medications Hydrocodone Bitart/Acetaminophen ([place] 325-5 Mg) 1 tab PO Q6H PRN PRN Reason: Pain Last Admin: 06/15/17 20:55 Dose: 1 tab Albuterol/Ipratropium (Duoneb 3.0-0.5 Mg/3 Ml) 3 ml NEB Q4H PRN PRN Reason: shortness of breath/wheezing Last Admin: 06/14/17 10:20 Dose: 3 ml Albuterol/Ipratropium (Duoneb 3.0-0.5 Mg/3 Ml) 3 ml NEB BIDRT [facility] Last Admin: 06/16/17 07:24 Dose: Not Given Aspirin (Halfprin) 81 mg PO BRK [facility] Last Admin: 06/16/17 08:21 Dose: Not Given Budesonide (Pulmicort) 0.5 mg NEB BIDRT [facility] Last Admin: 06/16/17 07:24 Dose: Not Given Carvedilol (Coreg) 6.25 mg PO BIDMEALS [facility] Last Admin: 06/16/17 08:21 Dose: Not Given Furosemide (Lasix) 40 mg PO DAILY [facility] Last Admin: 06/16/17 11:06 Dose: 40 mg Heparin Sodium (Porcine) (Heparin Sodium) 5,000 units SUBCUT Q12H [facility] Last Admin: 06/16/17 09:07 Dose: Not Given Levofloxacin/Dextrose 750 mg/ (Premix) 150 mls @ 100 mls/hr IV Q48H [facility] Potassium Chloride (Klor-Con 10) 20 meq PO WITHBREAKFAST [facility] Last Admin: 06/16/17 11:07 Dose: 20 meq Potassium Chloride (Klor-Con 10) 40 meq PO TIDMEALS [facility] Stop: 06/16/17 18:01 Sodium Chloride (Saline Flush) 10 ml FLUSH ASDIRECTED PRN PRN Reason: IV Use Terazosin HCl (Hytrin) 10 mg PO BEDTIME [facility] Last Admin: 06/15/17 20:40 Dose: 10 mg Discontinued Medications Hydrocodone Bitart/Acetaminophen ([place] 325-5 Mg) 1 tab PO Q12HR PRN PRN Reason: Pain Last Admin: 06/14/17 20:35 Dose: 1 tab Albuterol (Proventil Hfa) 0 gm INH ASDIRECTED PRN PRN Reason: breathing Albuterol (Proventil Hfa) 0 gm INH Q4H PRN PRN Reason: breathing Chlorthalidone (Chlorthalidone) 50 mg PO DAILY [facility] Last Admin: 06/14/17 10:08 Dose: 50 mg Furosemide (Lasix) 80 mg IVPUSH NOW ONE Stop: 06/12/17 11:06 Last Admin: 06/12/17 11:21 Dose: 80 mg Furosemide (Lasix) 40 mg IVPUSH BID [facility] Furosemide (Lasix) 40 mg IVPUSH BID@0900,1400 [facility] Last Admin: 06/14/17 14:35 Dose: 40 mg Furosemide (Lasix) 40 mg IVPUSH DAILY [facility] Levofloxacin/Dextrose 750 mg/ (Premix) 150 mls @ 100 mls/hr IV Q24H [facility] Last Infusion: 06/14/17 18:08 Dose: Infused Lisinopril (Prinivil) 10 mg PO DAILY [facility] Last Admin: 06/14/17 10:09 Dose: 10 mg Lisinopril (Prinivil) 5 mg PO DAILY [facility] Potassium Chloride (Klor-Con 10) 40 meq PO ONETIME ONE Stop: 06/15/17 16:01 Last Admin: 06/15/17 16:32 Dose: Not Given - Exam General: Alert, Oriented Neck: Supple Lungs: Clear to Auscultation, Normal Respiratory Effort Cardiovascular: Regular Rate GI/Abdominal Exam: Normal Bowel Sounds, Soft, Non-Tender Extremities: Pedal Edema Skin: Rash (An area of erythematous rash on the lower abdominal wall), Other ( Erythema noted in areas of lower extremities) Psy/Mental Status: Alert, Normal Affect, Normal Mood, Other (Poorly cooperating with the nurses) - Problem List & Annotations (1) Acute exacerbation of chronic obstructive pulmonary disease (COPD) SNOMED Code(s): 535004653 Code(s): J44.1 - CHRONIC OBSTRUCTIVE PULMONARY DISEASE W (ACUTE) EXACERBATION Status: Acute Current Visit: Yes (2) Congestive heart failure SNOMED Code(s): 57345932 Code(s): I50.9 - HEART FAILURE, UNSPECIFIED Status: Acute Priority: High Current Visit: Yes Qualifiers: Congestive heart failure type: unspecified congestive heart failure type Congestive heart failure chronicity: acute Qualified Code(s): I50.9 - Heart failure, unspecified (3) Hyponatremia SNOMED Code(s): 85068667 Code(s): E87.1 - HYPO-OSMOLALITY AND HYPONATREMIA Status: Acute Current Visit: Yes - Problem List Review Problem List Initiated/Reviewed/Updated: Yes - My Orders Last 24 Hours: My Active Orders 06/15/17 20:45 Acetaminophen/HYDROcodone [[place] 325-5 MG] 1 tab PO Q6H PRN 06/16/17 12:00 Potassium Chloride [Klor-Con 10] 40 meq PO TIDMEALS 06/16/17 16:00 Levofloxacin/Dextrose 5%-Water [Levaquin in D5W 750 MG/150 ML] 750 mg Premix Bag 1 bag IV Q48H - Plan Plan:: Acute exacerbation of COPD Treat with Pulmicort Use DuoNeb scheduled and when necessary For now hold off on systemic steroids Acute community-acquired pneumonia Remains afebrile Blood culture is pending Sputum culture is pending Treat with levofloxacin, adjusted for renal failure The leukocytosis might relate to infection or allergic reaction We'll monitor Acute congestive heart failure last echo 03/2016 Interpretation Summary The left ventricle is normal in size. There is moderate concentric left ventricular hypertrophy. Ejection Fraction = 55-60%. The left atrium is moderately dilated. There is mild mitral annular calcification. The tricuspid valve is not well visualized, but is grossly normal. The aortic valve is moderately calcified. Moderate to severe valvular aortic stenosis. There is no pericardial effusion. Likely due to diastolic dysfunction continue to Treat with Lasix Continue potassium supplement for severe hypokalemia Continue Coreg if he is willing to take it Stop lisinopril and chlorthalidone re: lower BPs Monitor electrolytes Hyponatremia Monitor with Diuretics recheck in AM DM BSs are controlled Acute renal failure Likely due to diuretics and hypotension Stopped blood pressure medications, decrease diuretics Recheck in the morning acute hypoxemic respiratory failure now off oxygen Rash This appeares to be a local contact dermatitis We will monitor DVT prophylaxis with subcutaneous heparin
[2017-06-16] MEDS ORDERED: Levofloxacin/Dextrose 5%-Water 750 MG in Premix Bag 1 BAG IV SCH (16:00)
[2017-06-16] MEDS: Terazosin 5 MG Cap PO SCH (21:15)
[2017-06-16] MEDS: Acetaminophen/HYDROcodone 325-5 MG Tab PO PRN (21:16)
[2017-06-17] MEDS: Acetaminophen/HYDROcodone 325-5 MG Tab PO PRN ×2 (03:17→09:30)
[2017-06-17] MEDS: Budesonide 0.5 MG/2 ML Neb Susp NEB SCH ×3 (07:29→17:30)
[2017-06-17] MEDS: Albuterol/Ipratropium 3.0-0.5 MG/3 ML Neb Soln NEB SCH ×3 (07:29→17:30)
[2017-06-17] MEDS ORDERED: Potassium Chloride 10 MEQ Tab.ER PO ONE (12:47)
--- NOTE | 2017-06-17 12:54 | PCM.PN ---
- General Info Date of Service: 06/17/17 Admission Dx/Problem (Free Text): Admission Diagnosis/Problem Admission Diagnosis/Problem Shortness of breath Subjective Update: Denies shortness of breath. No associated chest pain. No fever. erythema on the abdomen has improved continues to refuse medications including diuretics, potassium - Review of Systems General: Denies: Fever Pulmonary: Denies: Shortness of Breath Cardiovascular: Denies: Chest Pain Gastrointestinal: Denies: Abdominal Pain - Patient Data Vitals - Most Recent: Last Vital Signs Temp 36.2 C 06/17/17 11:00 Pulse 100 06/17/17 11:00 Resp 22 H 06/17/17 11:00 BP 97/40 L 06/17/17 11:00 Pulse Ox 92 L 06/17/17 11:00 Weight - Most Recent: 115.938 kg I&O - Last 24 Hours: Intake & Output 06/16/17 06/17/17 06/17/17 22:59 06:59 14:59 Intake Total 250 650 365 Output Total 200 700 300 Balance 50 -50 65 Lab Results Last 24 Hours: Laboratory Results - last 24 hr 06/17/17 06/17/17 Range/Units 10:48 10:48 WBC 10.8 H (5.0-10.0) 10^3/uL RBC 3.12 L (4.6-6.2) 10^6/uL Hgb 10.0 L (14.0-18.0) g/dL Hct 30.3 L (40.0-54.0) % MCV 97.1 (80-100) fL MCH 32.1 (27.0-34.0) pg MCHC 33.0 (33.0-35.0) g/dL Plt Count 146 L (150-450) 10^3/uL Neut % (Auto) 78.9 H (42.2-75.2) % Lymph % (Auto) 5.8 L (20.5-50.1) % [place] % (Auto) 14.5 H (2-8) % Eos % (Auto) 0.7 L (1.0-3.0) % Baso % (Auto) 0.1 (0.0-1.0) % Sodium 128 L (135-145) mmol/L Potassium 3.4 L (3.6-5.0) mmol/L Chloride 88 L (101-111) mmol/L Carbon Dioxide 32.0 H (21.0-31.0) mmol/L Anion Gap 11.4 BUN 24 H (7-18) mg/dL Creatinine 1.8 H (0.6-1.3) mg/dL Est Cr Clr Drug Dosing 38.22 mL/min Estimated GFR (MDRD) 37 Glucose 131 H (74-105) mg/dL Calcium 8.1 L (8.4-10.2) mg/dl Med Orders - Current: Current Medications Hydrocodone Bitart/Acetaminophen ([place] 325-5 Mg) 1 tab PO Q6H PRN PRN Reason: Pain Last Admin: 06/17/17 09:30 Dose: 1 tab Albuterol/Ipratropium (Duoneb 3.0-0.5 Mg/3 Ml) 3 ml NEB Q4H PRN PRN Reason: shortness of breath/wheezing Last Admin: 06/14/17 10:20 Dose: 3 ml Albuterol/Ipratropium (Duoneb 3.0-0.5 Mg/3 Ml) 3 ml NEB BIDRT [facility] Last Admin: 06/17/17 07:29 Dose: 3 ml Aspirin (Halfprin) 81 mg PO BRK [facility] Last Admin: 06/16/17 08:21 Dose: Not Given Budesonide (Pulmicort) 0.5 mg NEB BIDRT [facility] Last Admin: 06/17/17 07:29 Dose: 0.5 mg Carvedilol (Coreg) 6.25 mg PO BIDMEALS [facility] Last Admin: 06/16/17 17:12 Dose: Not Given Furosemide (Lasix) 40 mg PO DAILY [facility] Last Admin: 06/16/17 11:06 Dose: 40 mg Heparin Sodium (Porcine) (Heparin Sodium) 5,000 units SUBCUT Q12H [facility] Last Admin: 06/16/17 21:50 Dose: Not Given Levofloxacin/Dextrose 750 mg/ (Premix) 150 mls @ 100 mls/hr IV Q48H [facility] Last Infusion: 06/16/17 17:57 Dose: Infused Potassium Chloride (Klor-Con 10) 20 meq PO WITHBREAKFAST [facility] Last Admin: 06/16/17 11:07 Dose: 20 meq Potassium Chloride (Klor-Con 10) 40 meq PO ONETIME ONE Stop: 06/17/17 12:48 Sodium Chloride (Saline Flush) 10 ml FLUSH ASDIRECTED PRN PRN Reason: IV Use Last Admin: 06/16/17 16:14 Dose: 10 ml Terazosin HCl (Hytrin) 10 mg PO BEDTIME [facility] Last Admin: 06/16/17 21:15 Dose: 10 mg Discontinued Medications Hydrocodone Bitart/Acetaminophen ([place] 325-5 Mg) 1 tab PO Q12HR PRN PRN Reason: Pain Last Admin: 06/14/17 20:35 Dose: 1 tab Albuterol (Proventil Hfa) 0 gm INH ASDIRECTED PRN PRN Reason: breathing Albuterol (Proventil Hfa) 0 gm INH Q4H PRN PRN Reason: breathing Chlorthalidone (Chlorthalidone) 50 mg PO DAILY [facility] Last Admin: 06/14/17 10:08 Dose: 50 mg Furosemide (Lasix) 80 mg IVPUSH NOW ONE Stop: 06/12/17 11:06 Last Admin: 06/12/17 11:21 Dose: 80 mg Furosemide (Lasix) 40 mg IVPUSH BID [facility] Furosemide (Lasix) 40 mg IVPUSH BID@0900,1400 [facility] Last Admin: 06/14/17 14:35 Dose: 40 mg Furosemide (Lasix) 40 mg IVPUSH DAILY [facility] Levofloxacin/Dextrose 750 mg/ (Premix) 150 mls @ 100 mls/hr IV Q24H [facility] Last Infusion: 06/14/17 18:08 Dose: Infused Lisinopril (Prinivil) 10 mg PO DAILY [facility] Last Admin: 06/14/17 10:09 Dose: 10 mg Lisinopril (Prinivil) 5 mg PO DAILY [facility] Potassium Chloride (Klor-Con 10) 40 meq PO ONETIME ONE Stop: 06/15/17 16:01 Last Admin: 06/15/17 16:32 Dose: Not Given Potassium Chloride (Klor-Con 10) 40 meq PO TIDMEALS [facility] Stop: 06/16/17 18:01 Last Admin: 06/16/17 19:57 Dose: 40 meq - Exam General: Alert, Oriented Lungs: Clear to Auscultation Cardiovascular: Regular Rate, Regular Rhythm GI/Abdominal Exam: Normal Bowel Sounds, Soft Extremities: Pedal Edema - Problem List & Annotations (1) Acute exacerbation of chronic obstructive pulmonary disease (COPD) SNOMED Code(s): 371640219 Code(s): J44.1 - CHRONIC OBSTRUCTIVE PULMONARY DISEASE W (ACUTE) EXACERBATION Status: Acute Current Visit: Yes (2) Congestive heart failure SNOMED Code(s): 74753638 Code(s): I50.9 - HEART FAILURE, UNSPECIFIED Status: Acute Priority: High Current Visit: Yes Qualifiers: Congestive heart failure type: unspecified congestive heart failure type Congestive heart failure chronicity: acute Qualified Code(s): I50.9 - Heart failure, unspecified (3) Hyponatremia SNOMED Code(s): 78833868 Code(s): E87.1 - HYPO-OSMOLALITY AND HYPONATREMIA Status: Acute Current Visit: Yes - Problem List Review Problem List Initiated/Reviewed/Updated: Yes - My Orders Last 24 Hours: My Active Orders 06/16/17 16:00 Levofloxacin/Dextrose 5%-Water [Levaquin in D5W 750 MG/150 ML] 750 mg Premix Bag 1 bag IV Q48H 06/17/17 09:08 OT Evaluation and Treatment [CONS] Routine 06/17/17 12:47 Potassium Chloride [Klor-Con 10] 40 meq PO ONETIME ONE 06/18/17 05:15 BASIC METABOLIC PANEL,BMP [CHEM] AM CBC WITH AUTO DIFF [HEME] AM - Plan Plan:: Acute exacerbation of COPD Treat with Pulmicort Use DuoNeb scheduled and when necessary Acute community-acquired pneumonia Remains afebrile Blood culture is negative for now Sputum culture is pending Treat with levofloxacin, adjusted for renal failure The leukocytosis might relate to infection or allergic reaction We'll monitor Acute congestive heart failure last echo 03/2016 Interpretation Summary The left ventricle is normal in size. There is moderate concentric left ventricular hypertrophy. Ejection Fraction = 55-60%. The left atrium is moderately dilated. There is mild mitral annular calcification. The tricuspid valve is not well visualized, but is grossly normal. The aortic valve is moderately calcified. Moderate to severe valvular aortic stenosis. There is no pericardial effusion. Likely due to diastolic dysfunction continue to Treat with Lasix Continue potassium supplement for severe hypokalemia Continue Coreg if he is willing to take it Stop lisinopril and chlorthalidone re: lower BPs Monitor electrolytes Hyponatremia Monitor with Diuretics recheck in AM DM BSs are controlled Acute renal failure Likely due to diuretics and hypotension improving Stopped blood pressure medications, decreased diuretics Recheck in the morning acute hypoxemic respiratory failure now off oxygen Rash This appeares to be a local contact dermatitis improved We will monitor DVT prophylaxis with subcutaneous heparin
[2017-06-17] MEDS: Heparin Sodium 5,000 Units/ML Vial SUBCUT SCH ×2 (13:29→22:05)
[2017-06-17] MEDS: Carvedilol 6.25 MG Tab PO SCH ×2 (13:33→17:30)
[2017-06-17] MEDS: Aspirin 81 MG Tab.EC PO SCH (13:33)
[2017-06-17] MEDS: Potassium Chloride 10 MEQ Tab.ER PO SCH (13:33)
[2017-06-17] MEDS: Furosemide 40 MG Tab PO SCH (13:33)
[2017-06-17] MEDS: Terazosin 5 MG Cap PO SCH (21:41)
[2017-06-18] MEDS: Albuterol/Ipratropium 3.0-0.5 MG/3 ML Neb Soln NEB SCH (07:12)
[2017-06-18] MEDS: Budesonide 0.5 MG/2 ML Neb Susp NEB SCH (07:12)
[2017-06-18] MEDS: Aspirin 81 MG Tab.EC PO SCH (09:02)
[2017-06-18] MEDS: Carvedilol 6.25 MG Tab PO SCH (09:02)
[2017-06-18] MEDS: Potassium Chloride 10 MEQ Tab.ER PO SCH (09:02)
[2017-06-18] MEDS: Furosemide 40 MG Tab PO SCH (09:02)
[2017-06-18] MEDS: Heparin Sodium 5,000 Units/ML Vial SUBCUT SCH ×2 (09:03→09:06)
--- NOTE | 2017-06-18 11:23 | PCM.DCSUM1 ---
Discharge Summary - Hospital Course Free Text/Narrative:: Acute exacerbation of COPD Treated with Pulmicort and DuoNeb We will discharge home with dulera and albuterol Acute community-acquired pneumonia Blood culture is negative Treat with levofloxacin, Acute diastolic congestive heart failure last echo 03/2016 Interpretation Summary The left ventricle is normal in size. There is moderate concentric left ventricular hypertrophy. Ejection Fraction = 55-60%. The left atrium is moderately dilated. There is mild mitral annular calcification. The tricuspid valve is not well visualized, but is grossly normal. The aortic valve is moderately calcified. Moderate to severe valvular aortic stenosis. There is no pericardial effusion. Likely due to diastolic dysfunction continue to Treat with Lasix Continue potassium supplement for hypokalemia Continue Coreg hold lisinopril and chlorthalidone re: lower BPs and renal failure Hyponatremia Monitor with Diuretics as outpatient periodically DM BSs are controlled Acute renal failure Likely due to diuretics and hypotension improving Stopped blood pressure medications, decreased diuretics Follow as outpatient acute hypoxemic respiratory failure Resolved now off oxygen Rash This appeared to be a local contact dermatitis resolved - Discharge Data Discharge Date: 06/18/17 Discharge Disposition: Home, Self-Care 01 Condition: Stable - Discharge Diagnosis/Problem(s) (1) Acute exacerbation of chronic obstructive pulmonary disease (COPD) SNOMED Code(s): 097978163 ICD Code: J44.1 - CHRONIC OBSTRUCTIVE PULMONARY DISEASE W (ACUTE) EXACERBATION Status: Acute Current Visit: Yes (2) Congestive heart failure SNOMED Code(s): 35994642 ICD Code: I50.9 - HEART FAILURE, UNSPECIFIED Status: Acute Priority: High Current Visit: Yes Qualifiers: Congestive heart failure type: unspecified congestive heart failure type Congestive heart failure chronicity: acute Qualified Code(s): I50.9 - Heart failure, unspecified (3) Hyponatremia SNOMED Code(s): 69016923 ICD Code: E87.1 - HYPO-OSMOLALITY AND HYPONATREMIA Status: Acute Current Visit: Yes - Patient Summary/Data Consults: Consultations 06/17/17 09:08 OT Evaluation and Treatment [CONS] Routine - Discharge Plan Prescriptions/Med Rec: Carvedilol [Coreg] 6.25 mg PO BIDMEALS #60 tablet Formoterol/Mometasone [Dulera 100-50 MCG] 2 puff IH BID #1 hfa.aer.ad Furosemide [Lasix] 40 mg PO DAILY #30 tablet Levofloxacin 500 mg PO DAILY #5 tablet Potassium Chloride [Klor-Con 10] 20 meq PO WITHBREAKFAST #30 tab.er Home Medications: Home Meds Aspirin [Halfprin] 81 mg PO BRK 05/17/16 [History] Hydrocodone/Acetaminophen [Hydrocodon-Acetaminophen 5-325] 1 each PO Q12HR PRN 05/17/16 [History] Terazosin HCl [Terazosin] 10 mg PO BEDTIME 05/17/16 [History] Albuterol [IJD: Albuterol HFA] 2 puff INH ASDIRECTED PRN 06/12/17 [History] Carvedilol [Coreg] 6.25 mg PO BIDMEALS #60 tablet 06/18/17 [Rx] Formoterol/Mometasone [Dulera 100-50 MCG] 2 puff IH BID #1 hfa.aer.ad 06/18/17 [ Rx] Furosemide [Lasix] 40 mg PO DAILY #30 tablet 06/18/17 [Rx] Levofloxacin 500 mg PO DAILY #5 tablet 06/18/17 [Rx] Potassium Chloride [Klor-Con 10] 20 meq PO WITHBREAKFAST #30 tab.er 06/18/17 [Rx ] Referrals: PCP,Unobtain [Primary Care Provider] - ([facility] [place] [facility]-4 [facility] with BMP re: diuretics, CBC re: pneumonia) - General Info Date of Service: 06/18/17 Functional Status: Reports: Pain Controlled - Review of Systems General: Denies: Fever, Weakness Pulmonary: Denies: Shortness of Breath Cardiovascular: Denies: Chest Pain Gastrointestinal: Denies: Abdominal Pain - Patient Data Vitals - Most Recent: Last Vital Signs Temp 36.9 C 06/18/17 07:00 Pulse 78 06/18/17 09:02 Resp 20 06/18/17 07:00 BP 122/63 06/18/17 09:02 Pulse Ox 90 L 06/18/17 07:00 Weight - Most Recent: 113.001 kg I&O - Last 24 hours: Intake & Output 06/17/17 06/18/17 06/18/17 22:59 06:59 14:59 Intake Total 75 475 120 Output Total 1425 975 Balance -1350 -500 120 Lab Results - Last 24 hrs: Laboratory Results - last 24 hr 06/18/17 06/18/17 Range/Units 06:20 06:20 WBC 8.3 (5.0-10.0) 10^3/uL RBC 3.17 L (4.6-6.2) 10^6/uL Hgb 10.2 L (14.0-18.0) g/dL Hct 31.0 L (40.0-54.0) % MCV 97.8 (80-100) fL MCH 32.2 (27.0-34.0) pg MCHC 32.9 L (33.0-35.0) g/dL Plt Count 149 L (150-450) 10^3/uL Neut % (Auto) 71.2 (42.2-75.2) % Lymph % (Auto) 12.2 L (20.5-50.1) % [place] % (Auto) 14.6 H (2-8) % Eos % (Auto) 1.9 (1.0-3.0) % Baso % (Auto) 0.1 (0.0-1.0) % Sodium 130 L (135-145) mmol/L Potassium 3.6 (3.6-5.0) mmol/L Chloride 89 L (101-111) mmol/L Carbon Dioxide 34.0 H (21.0-31.0) mmol/L Anion Gap 10.6 BUN 23 H (7-18) mg/dL Creatinine 1.8 H (0.6-1.3) mg/dL Est Cr Clr Drug Dosing 38.22 mL/min Estimated GFR (MDRD) 37 Glucose 109 H (74-105) mg/dL Calcium 8.4 (8.4-10.2) mg/dl Med Orders - Current: Current Medications Hydrocodone Bitart/Acetaminophen ([place] 325-5 Mg) 1 tab PO Q6H PRN PRN Reason: Pain Last Admin: 06/17/17 09:30 Dose: 1 tab Albuterol/Ipratropium (Duoneb 3.0-0.5 Mg/3 Ml) 3 ml NEB Q4H PRN PRN Reason: shortness of breath/wheezing Last Admin: 06/14/17 10:20 Dose: 3 ml Albuterol/Ipratropium (Duoneb 3.0-0.5 Mg/3 Ml) 3 ml NEB BIDRT [facility] Last Admin: 06/18/17 07:12 Dose: 3 ml Aspirin (Halfprin) 81 mg PO BRK [facility] Last Admin: 06/18/17 09:02 Dose: 81 mg Budesonide (Pulmicort) 0.5 mg NEB BIDRT [facility] Last Admin: 06/18/17 07:12 Dose: 0.5 mg Carvedilol (Coreg) 6.25 mg PO BIDMEALS [facility] Last Admin: 06/18/17 09:02 Dose: 6.25 mg Furosemide (Lasix) 40 mg PO DAILY [facility] Last Admin: 06/18/17 09:02 Dose: 40 mg Heparin Sodium (Porcine) (Heparin Sodium) 5,000 units SUBCUT Q12H [facility] Last Admin: 06/18/17 09:06 Dose: Not Given Levofloxacin/Dextrose 750 mg/ (Premix) 150 mls @ 100 mls/hr IV Q48H [facility] Last Infusion: 06/16/17 17:57 Dose: Infused Potassium Chloride (Klor-Con 10) 20 meq PO WITHBREAKFAST [facility] Last Admin: 06/18/17 09:02 Dose: 20 meq Sodium Chloride (Saline Flush) 10 ml FLUSH ASDIRECTED PRN PRN Reason: IV Use Last Admin: 06/16/17 16:14 Dose: 10 ml Terazosin HCl (Hytrin) 10 mg PO BEDTIME [facility] Last Admin: 06/17/17 21:41 Dose: 10 mg Discontinued Medications Hydrocodone Bitart/Acetaminophen ([place] 325-5 Mg) 1 tab PO Q12HR PRN PRN Reason: Pain Last Admin: 06/14/17 20:35 Dose: 1 tab Albuterol (Proventil Hfa) 0 gm INH ASDIRECTED PRN PRN Reason: breathing Albuterol (Proventil Hfa) 0 gm INH Q4H PRN PRN Reason: breathing Chlorthalidone (Chlorthalidone) 50 mg PO DAILY [facility] Last Admin: 06/14/17 10:08 Dose: 50 mg Furosemide (Lasix) 80 mg IVPUSH NOW ONE Stop: 06/12/17 11:06 Last Admin: 06/12/17 11:21 Dose: 80 mg Furosemide (Lasix) 40 mg IVPUSH BID [facility] Furosemide (Lasix) 40 mg IVPUSH BID@0900,1400 [facility] Last Admin: 06/14/17 14:35 Dose: 40 mg Furosemide (Lasix) 40 mg IVPUSH DAILY [facility] Levofloxacin/Dextrose 750 mg/ (Premix) 150 mls @ 100 mls/hr IV Q24H [facility] Last Infusion: 06/14/17 18:08 Dose: Infused Lisinopril (Prinivil) 10 mg PO DAILY [facility] Last Admin: 06/14/17 10:09 Dose: 10 mg Lisinopril (Prinivil) 5 mg PO DAILY [facility] Potassium Chloride (Klor-Con 10) 40 meq PO ONETIME ONE Stop: 06/15/17 16:01 Last Admin: 06/15/17 16:32 Dose: Not Given Potassium Chloride (Klor-Con 10) 40 meq PO TIDMEALS [facility] Stop: 06/16/17 18:01 Last Admin: 06/16/17 19:57 Dose: 40 meq Potassium Chloride (Klor-Con 10) 40 meq PO ONETIME ONE Stop: 06/17/17 12:48 Last Admin: 06/17/17 13:33 Dose: 40 meq - Exam General: Reports: Alert, Oriented Neck: Reports: Supple Lungs: Reports: Normal Respiratory Effort, Decreased Breath Sounds. Denies: Wheezing GI/Abdominal Exam: Normal Bowel Sounds, Soft, Non-Tender, Other (Obese) Extremities: Pedal Edema (1+ bilateral) Neurological: Reports: No New Focal Deficit Psy/Mental Status: Reports: Alert, Normal Affect, Normal Mood *Q Meaningful Use (DIS) - VTE *Q VTE Criteria *Q: - Stroke *Q Stroke Criteria *Q: - AMI *Q AMI Criteria *Q:
[2017-06-18 11:26] VITALS: BP 104/53
== END 2017-06-18 14:45 | disposition home or self-care (01) | DRG 193 ==
LOC: DL.ED 09:20 → UNDOADMIN 11:47 → DL.MS 11:47
PROVIDERS: ADMIT Student in an Organized Health Care Education/Training Program; ATTEND Student in an Organized Health Care Education/Training Program
DX: J18.9 Pneumonia, unspecified organism (principal); I50.31 Acute diastolic (congestive) heart failure; J96.01 Acute respiratory failure with hypoxia; J44.1 Chronic obstructive pulmonary disease with (acute) exacerbation; N17.9 Acute kidney failure, unspecified; E87.1 Hypo-osmolality and hyponatremia; E87.6 Hypokalemia; E11.9 Type 2 diabetes mellitus without complications; I95.9 Hypotension, unspecified; L25.9 Unspecified contact dermatitis, unspecified cause; I11.0 Hypertensive heart disease with heart failure; I25.10 Atherosclerotic heart disease of native coronary artery without angina pectoris; Z87.891 Personal history of nicotine dependence; E87.8 Other disorders of electrolyte and fluid balance, not elsewhere classified
CPT/HCPCS: 36415; 71045; 80048; 80053; 81001; 82272; 82962; 83735; 83880; 84100; 84484; 85025; 93005; 93010; 94010; 94640; 96374; 97140-GO; 97165-GO; 99284; 99285; A9270-GY; J1644; J1940; J1956; J7050

== ENCOUNTER 2019-10-16 22:52 | Emergency (ER) | payer OTHER, MEDICARE ==
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
[2019-10-16 23:35] LABS: ANION GAP 12.5 mEq/L (7-13)
[2019-10-16 23:47] VITALS: BP 115/61; PULSE 67
== END 2019-10-17 01:25 ==
LOC: DL.ED 22:52
DX: R25.1 Tremor, unspecified (principal); I48.91 Unspecified atrial fibrillation; I11.0 Hypertensive heart disease with heart failure; I50.9 Heart failure, unspecified; J44.9 Chronic obstructive pulmonary disease, unspecified; I25.10 Atherosclerotic heart disease of native coronary artery without angina pectoris; E78.00 Pure hypercholesterolemia, unspecified; Z88.0 Allergy status to penicillin; Z91.018 Allergy to other foods; Z79.82 Long term (current) use of aspirin; Z79.899 Other long term (current) drug therapy; Z20.828 Contact with and (suspected) exposure to other viral communicable diseases
CPT/HCPCS: 36415; 70450; 71045; 80053; 80305-QW; 80307; 81001; 83735; 83880; 84443; 84484; 85025; 85610; 93005; 99284; 99285-25; U0002